=== PATIENT | female | born 1970 | race Caucasian/White ===

== ENCOUNTER 2017-03-19 13:26 | Emergency (ER) | payer OTHER ==
[2017-03-19 13:36] VITALS: RESP 16; TEMP 97.9; O2SAT 95
--- NOTE | 2017-03-19 14:25 | EDPHY ---
H & P Time Seen by Provider: 03/19/17 13:44 HPI/ROS: This patient ran out of her Lexapro 2 days prior to arrival here in complains of significant anxiety. She has had very good control of her anxiety on Lexapro for the past 20 years. She does report recent life changes that are adding to her baseline anxiety-primarily blunting family's with her boyfriend. The HF 3 children so now total 6 children in the home. She also has work- related stress. She maintains good insight regarding her anxiety. She has no other associated symptoms. ROS: Constitutional: No fevers or other complaints HEENT: No URI or other complaints Pulmonary: No shortness of breath Cardiovascular: No chest pain or lightheadedness GI: No nausea vomiting Integumentary: No skin rash Psychiatric: No significant depression. 10 point ROS is otherwise negative Past Medical/Surgical History: Anxiety Social History: Rare alcohol. No drug use Smoking Status: Never smoked Physical Exam: General Appearance: Alert, no distress. Eyes: Pupils equal and round no pallor or injection. ENT, Mouth: Mucous membranes moist. Respiratory: There are no retractions, lungs are clear to auscultation. Cardiovascular: Regular rate and rhythm. Neurological: GCS 15 Skin: Warm and dry, no rashes. Musculoskeletal: Neck is supple nontender. Psychiatric: Minimal anxiety here. She maintains logical thought content good insight regarding her anxiety. She denies any major depression. She does not have pressured speech. No psychotic symptoms. DIFFERENTIAL DIAGNOSIS: After history and physical exam differential diagnosis was considered for anxiety, medication refill, Constitutional: Initial Vital Signs Temperature (C) 36.6 C 03/19/17 13:32 Heart Rate 79 03/19/17 13:32 Respiratory Rate 16 03/19/17 13:32 Blood Pressure 139/84 H 03/19/17 13:32 O2 Sat (%) 95 03/19/17 13:32 O2 Delivery Mode Room Air Allergies/Adverse Reactions: nitrofurantoin [From Macrobid] Allergy (Intermediate, Verified 03/19/17 13:29) nitrofurantoin macrocrystalline [From Macrobid] Allergy (Intermediate, Verified 03/19/17 13:29) Home Medications: Medication Instructions Recorded Escitalopram Oxalate [Lexapro 10 20 mg PO 10/03/12 MG (RX)] Ondansetron Odt [Zofran Odt] 4 mg PO Q4 PRN #6 tab 09/17/15 Xanax 09/17/15 morphINE IR [morphINE IR 15 mg 15 mg PO Q4-6PRN PRN #8 tab 09/17/15 (RX)] Escitalopram Oxalate [Lexapro] 20 mg PO DAILY #60 tab 03/19/17 LORazepam [Ativan] 0.5 - 1 mg PO Q6 PRN #12 tablet 03/19/17 Propranolol HCl [Inderal 10mg (*)] 10 - 20 mg PO BID PRN #20 tab 03/19/17 MDM/Departure - [facility] ED Course/Re-evaluation: This patient may benefit from propranolol for situational anxiety additional Lexapro neck counseled regarding this. Patient is interested in trying propranolol. No red flag findings that would suggest a manic episode, major depression, drug- seeking behavior or other concerning findings. - Depart Disposition: Home, Routine, Self-Care Clinical Impression: Anxiety Condition: Good Instructions: Generalized Anxiety Disorder (ED) Additional Instructions: Diagnosis: Anxiety Plan: Restart your Lexapro Propranolol in addition if needed for situational anxiety or panic attack Lorazepam in addition if needed. No driving, alcohol or come around [place] Call primary care physician listed below to arrange follow-up appointment for sometime within the next 2-3 weeks to establish primary care physician and have a recheck. Return for any significant worsening despite the treatment plan. Prescriptions: Escitalopram Oxalate [Lexapro] 20 mg PO DAILY #60 tab LORazepam [Ativan] 0.5 - 1 mg PO Q6 PRN #12 tablet PRN Reason: Anxiety Propranolol HCl [Inderal 10mg (*)] 10 - 20 mg PO BID PRN #20 tab PRN Reason: Anxiety Referrals: NONE *PRIMARY CARE P,. [Primary Care Provider] - As per Instructions Purvi Bowers MD [[facility] Primary Care Provider] - As per Instructions Lyn Cash MD [Medical Doctor] - As per Instructions
[2017-03-19 14:52] VITALS: BP 128/97; PULSE 68
== END 2017-03-19 14:35 | disposition home or self-care (01) ==
LOC: CED 13:26
DX: F41.9 Anxiety disorder, unspecified (principal)

== ENCOUNTER 2017-09-09 09:34 | Emergency (ER) | payer OTHER ==
[2017-09-09 09:50] VITALS: TEMP 97.9; O2SAT 95
--- NOTE | 2017-09-09 09:55 | EDPHY ---
H & P Time Seen by Provider: 09/09/17 09:53 HPI/ROS: CHIEF COMPLAINT: Hip pain HISTORY OF PRESENT ILLNESS: Patient is a 47-year-old female with a history of SI joint dysfunction and chronic hip pain. She is scheduled for surgery with Dr. Edmudno Escobar this Tuesday. Patient states that she has run out of her pain medication. She normally takes 10-325 Peculiar goes. She called her pain physician, Dr. Morris, who was unavailable in the office. They told her to come to the emergency department. Patient states that she has not have a pain contract and she can receive pain medications today. She denies any new incontinence of urine or stool. No weakness or numbness. REVIEW OF SYSTEMS: My complete review of systems is negative except as mentioned in the HPI. Past Medical/Surgical History: Bipolar, hypothyroidism, SI joint dysfunction Smoking Status: Never smoked Physical Exam: Vitals noted GENERAL: Well-appearing, in no acute distress, alert. HEENT: Eyes normal to inspection, normal pharynx, no signs of dehydration. NECK: [No thyromegaly, no lymphadenopathy, supple. RESPIRATORY: Clear to auscultation bilaterally, no rales, rhonchi or wheezing. CVS: Regular rate and rhythm, no rubs, murmurs, or gallops. ABDOMEN: Soft, nontender, nondistended, no organomegaly. BACK: Normal to inspection, no CVA tenderness. SKIN: Normal color, no rash, warm, dry. No pallor. EXTREMITIES: No pedal edema, no calf tenderness, no Homans sign or cords, no joint swelling. NEURO/PSYCH: Alert and oriented x3, normal mood and affect, normal motor sensory exam. No obvious cranial nerve deficit. Constitutional: Initial Vital Signs Temperature (C) 36.6 C 09/09/17 09:49 Heart Rate 87 09/09/17 09:49 Respiratory Rate 16 09/09/17 09:49 Blood Pressure 165/108 H 09/09/17 09:49 O2 Sat (%) 95 09/09/17 09:49 O2 Delivery Mode Room Air Allergies/Adverse Reactions: nitrofurantoin [From Macrobid] Allergy (Intermediate, Verified 09/09/17 09:51) nitrofurantoin macrocrystalline [From Macrobid] Allergy (Intermediate, Verified 09/09/17 09:51) Home Medications: Medication Instructions Recorded morphINE IR [morphINE IR 15 mg 15 mg PO Q4-6PRN PRN #8 tab 09/17/15 (RX)] Escitalopram Oxalate [Lexapro] 20 mg PO DAILY #60 tab 03/19/17 HYDROcodone/APAP 10/325 [Peculiar 1 - 2 tab PO Q6 #15 tab 09/09/17 10/325 (*)] Medical Decision Making ED Course/Re-evaluation: In the emergency department I discussed the plan with the patient. She will be given a short course of Peculiar. She will follow up with Dr. Castorena. She was given warnings prior to leaving. She was informed she will not be given a repeat prescription from the emergency department. Differential Diagnosis: My differential includes but is not limited to drug-seeking behavior, SI joint dysfunction, disc herniation. I see no signs of focal neurologic deficit. Departure - Departure Disposition: Home, Routine, Self-Care Clinical Impression: Hip pain Qualifiers: Laterality: left Qualified Code(s): M25.552 - Pain in left hip Condition: Good Instructions: Hip Pain (ED) Additional Instructions: Called to follow up with Dr. Cardenas. Return with worsening symptoms. Referrals: SAROJ DONOHUE NP [Primary Care Provider] - As per Instructions Joseph Cardenas MD [Medical Doctor] - As per Instructions Prescriptions: HYDROcodone/APAP 10/325 [Peculiar 10/325 (*)] 1 - 2 tab PO Q6 #15 tab
[2017-09-09 10:31] VITALS: BP 154/90; PULSE 71; RESP 20
== END 2017-09-09 10:29 | disposition home or self-care (01) ==
LOC: CED 09:34
DX: M25.552 Pain in left hip (principal)